=== PATIENT | male | born 1985 | race Caucasian/White ===

== ENCOUNTER 2021-07-02 19:41 | Emergency (ER) | payer BC ==
[~2021-07-02 19:41] MED LIST: AUGMENTIN TAB875 MG GT; BACTRIM DS TAB1 EACH PO; IBUPROFEN800 MG PO; NORCO 5-325 TA1 EACH PO; VITAMIN C 500500 MG PO
[2021-07-02 21:46] LABS: HEMOGLOBIN 14.9 gm/dl (14.0-17.5); RED BLOOD COUNT 5.08 M/UL (4.20-5.50); WHITE BLOOD COUNT 13.8 K/UL (4.5-11.0)
[2021-07-02 22:08] LABS: BUN/CREATININE RATIO 11 (0-10)
[2021-07-03] MEDS ORDERED: PRILOSEC OTC20 MG PO (04:10)
[2021-07-03] MEDS ORDERED: MONODOX100 MG PO (04:10)
== END 2021-07-03 04:25 | disposition home or self-care (01) ==
LOC: ER1 19:41
PROVIDERS: Physician Assistant
DX: T14.8XXA Other injury of unspecified body region, initial encounter (principal); Z87.891 Personal history of nicotine dependence; X58.XXXA Exposure to other specified factors, initial encounter
CPT/HCPCS: 80053; 81001; 82550; 82553; 83690; 84484; 85025; 87086; 93005; 99284; Q9967